=== PATIENT | female | born 1950 | race Caucasian/White ===

== ENCOUNTER → 2021-04-18 | Outpatient (CLI) | payer MEDICARE, BC ==
[~2021-04-18] VITALS: Ht 167.6 cm; Wt 99.8 kg
== END ==
LOC: EROP 10:52
DX: U07.1 COVID-19 (principal); Z23 Encounter for immunization; M06.9 Rheumatoid arthritis, unspecified; I10 Essential (primary) hypertension
CPT/HCPCS: M0247; Q0247